=== PATIENT | male | born 1975 | race Caucasian/White ===

== ENCOUNTER 2017-10-04 07:42 | Emergency (ER) | payer BC, OTHER ==
[2017-10-04 07:50] VITALS: BP 117/79
--- NOTE | 2017-10-04 09:14 | EKG REPORT ---
SEVERITY:- OTHERWISE NORMAL ECG - SINUS RHYTHM LEFT AXIS DEVIATION : Confirmed by: Shaw David 04-Oct-2017 09:13:26
[2017-10-04] MEDS ORDERED: ALBUTEROL SULFATE HFA (90 MCG/PUFF) 8 GM MDI (1 MDI/ER DISP) IH ONE (09:18)
[2017-10-04] MEDS ORDERED: PREDNISONE 20 MG TABLET PO ONE (09:18)
--- NOTE | 2017-10-04 09:20 | ER Document Report ---
ED General - General Chief Complaint: Chest Wall Pain Stated Complaint: CHEST PAIN Time Seen by Provider: 10/04/17 08:09 TRAVEL OUTSIDE OF THE [place] IN LAST 30 DAYS: No - HPI Patient complains to provider of: Left chest wall pain Notes: Patient coming in for evaluation of chest wall pain. Patient states intermittent chest wall pain shortness of breath ongoing for the last 24 hours. Patient states 3 months ago he was diagnosed with a left chest wall mass was seen by cardiothoracic surgery at [facility] recommend follow-up CT scan in 3 months. Patient states he has follow-up CT scan on the . Patient denies any fevers chills nausea vomiting productive cough denies any recent travel patient otherwise resting comfortably upon my evaluation no signs of any obvious distress. Denies any trauma Past Medical History - Social History Smoking Status: Current Every Day Smoker Family History: Reviewed & Not Pertinent Patient has suicidal ideation: No Patient has homicidal ideation: No Renal/ Medical History: Denies: Hx Peritoneal Dialysis Skin Medical History: Comment Only Hx MRSA - MRSA FINGER JANUARY 24 Review of Systems - Review of Systems Constitutional: No symptoms reported EENT: No symptoms reported Cardiovascular: Chest pain Respiratory: No symptoms reported Gastrointestinal: No symptoms reported Genitourinary: No symptoms reported Male Genitourinary: No symptoms reported Musculoskeletal: No symptoms reported Skin: No symptoms reported Hematologic/Lymphatic: No symptoms reported Neurological/Psychological: No symptoms reported -: Yes All other systems reviewed and negative Physical Exam - Vital signs Vitals: Temp Pulse Resp BP Pulse Ox 97.8 F 75 15 117/79 95 10/04/17 07:49 10/04/17 07:49 10/04/17 07:49 10/04/17 07:49 10/04/17 07:49 Interpretation: Normal - General General appearance: Appears well, Alert - HEENT Head: Normocephalic, Atraumatic Eyes: Normal Pupils: PERRL - Respiratory Respiratory status: No respiratory distress Chest status: Nontender Breath sounds: Normal Chest palpation: Normal - Cardiovascular Rhythm: Regular Heart sounds: Normal auscultation Murmur: No - Abdominal Inspection: Normal Distension: No distension Bowel sounds: Normal Tenderness: Nontender Organomegaly: No organomegaly - Back Back: Normal, Nontender - Extremities General upper extremity: Normal inspection, Nontender, Normal color, Normal ROM , Normal temperature General lower extremity: Normal inspection, Nontender, Normal color, Normal ROM , Normal temperature, Normal weight bearing. No: Cr's sign - Neurological Neuro grossly intact: Yes Cognition: Normal Orientation: AAOx4 Rama Coma Scale Eye Opening: Spontaneous [place] Coma Scale Verbal: Oriented [place] Coma Scale Motor: Obeys Commands Rama Coma Scale Total: 15 Speech: Normal Motor strength normal: LUE, RUE, LLE, RLE Sensory: Normal - Psychological Associated symptoms: Normal affect, Normal mood - Skin Skin Temperature: Warm Skin Moisture: Dry Skin Color: Normal Course - Re-evaluation Re-evalutation: 10/04/17 14:38 Long discussion with patient at bedside today his vital signs and physical examination are otherwise normal. Patient states he feels similar when he was recently first diagnosed with the lung mass states at that time he placed him on bronchodilators and prednisone. Patient states he does have a follow-up CT scan on otherwise is more or less just aggravated by the intermittent chest wall pain intermittent shortness of breath. Patient had an EKG performed showing no signs of any cardiac issues. Long discussion with patient that unless clinically patient is very well and does have appropriate follow-up as outpatient. The patient was normal vital signs and I think a workup here in the ER was really healed much however I explained to patient that the mass in his chest if not benign could increase his risk of issues such as blood clots I do not think the patient's has any cardiac ischemia cardiac damage pulmonary infection or any trauma that would require any further imaging at this time. Patient states understanding and agrees that he would just follow-up with his outpatient CT scan 25th agrees to treatment plan at this time for bronchodilators and prednisone. Patient is understanding to return to ER symptoms worsen. - Vital Signs Vital signs: Temp Pulse Resp BP Pulse Ox 97.8 F 75 15 117/79 95 10/04/17 07:49 10/04/17 07:49 10/04/17 07:49 10/04/17 07:49 10/04/17 07:49 Discharge - Discharge Clinical Impression: Chest wall pain Dyspnea Qualifiers: Dyspnea type: unspecified Qualified Code(s): R06.00 - Dyspnea, unspecified Condition: Good Disposition: HOME, SELF-CARE Instructions: Chest Wall Pain ([facility]) Additional Instructions: Your EKG today does not show any signs of believe your underlying chest wall pain and dyspnea is more likely due to your known chest wall mass. I do not believe that you have any other critical etiology ongoing at this time except her vital signs are normal your afebrile there is no signs of hypoxia and your physical examination is otherwise normal. Please continue with your follow-up for a repeat CT scan. Return to ER if any symptoms change or worsen. Continue with Tylenol Motrin for pain control. Prescriptions: Prednisone [Deltasone] 60 mg PO DAILY #24 tablet Forms: Return to Work Referrals: ULISES DELATORRE MD [Primary Care Provider] - Follow up as needed
== END 2017-10-04 09:44 | disposition home or self-care (01) ==
LOC: ER 07:42
DX: R07.89 Other chest pain (principal); R06.00 Dyspnea, unspecified; F17.200 Nicotine dependence, unspecified, uncomplicated; Z86.14 Personal history of Methicillin resistant Staphylococcus aureus infection
CPT/HCPCS: 93005; 99284; 93010; J7512; J3490

== ENCOUNTER 2017-11-20 09:09 | Emergency (ER) | payer BC ==
[2017-11-20] MEDS ORDERED: SULFAMETHOXAZOLE/TRIMETHOPRIM 800-160 MG TABLET PO ONE (10:29)
--- NOTE | 2017-11-20 10:43 | ER Document Report ---
ED General - General Chief Complaint: Wound Infection Stated Complaint: WOUND ISSUE Time Seen by Provider: 11/20/17 09:57 TRAVEL OUTSIDE OF THE [place] IN LAST 30 DAYS: No - HPI Patient complains to provider of: Surgical wound infection Notes: Patient coming in for surgical infection. Patient states had a lobectomy at [facility] in the middle of of October states for 1 week the lower part of the incision approximately lateral portion of the chest wall ribs 6 7 had opened up he has been placing Neosporin and a dressing on it also has been violating the wound edges but he had it was finger and obtaining pus out of the open wound. Patient denies any fever chills nausea vomiting diarrhea denies any shortness of breath. Patient does have a follow-up with his cardiothoracic surgeon at [facility] all fortunately this is not until December 05. Patient resting comfortably upon my evaluation - Related Data Allergies/Adverse Reactions: No Known Allergies Allergy (Unverified 11/20/17 09:17) Past Medical History - Social History Smoking Status: Former Smoker Family History: Reviewed & Not Pertinent Patient has suicidal ideation: No Patient has homicidal ideation: No Renal/ Medical History: Denies: Hx Peritoneal Dialysis Skin Medical History: Comment Only Hx MRSA - MRSA FINGER JANUARY 24 Review of Systems - Review of Systems Constitutional: No symptoms reported EENT: No symptoms reported Cardiovascular: No symptoms reported Respiratory: No symptoms reported Gastrointestinal: No symptoms reported Genitourinary: No symptoms reported Male Genitourinary: No symptoms reported Musculoskeletal: No symptoms reported Skin: Other - Wound infection Hematologic/Lymphatic: No symptoms reported Neurological/Psychological: No symptoms reported -: Yes All other systems reviewed and negative Physical Exam - Vital signs Vitals: Temp Pulse Resp BP Pulse Ox 98.0 F 91 18 150/90 H 97 11/20/17 09:16 11/20/17 09:16 11/20/17 09:16 11/20/17 09:16 11/20/17 09:16 Interpretation: Normal - General General appearance: Appears well, Alert - HEENT Head: Normocephalic, Atraumatic Eyes: Normal Pupils: PERRL - Respiratory Respiratory status: No respiratory distress Chest status: Nontender Breath sounds: Normal Chest palpation: Normal Notes: Examination of the chest wall does reveals postsurgical scars in the left upper axilla and a small 1 lateral chest wall rib 6 7 there is no erythema on the wound margins however there is a small area of dehiscence on the medial portion of the wound is open less than 0.5 cm. There is some purulent material that is easily expressed from the wound. Bedside ultrasound does not show any deep fluid collections or abscess formation. There is no explosion of pus when the patient coughs there is no signs of a sucking wound whenever the patient takes a deep breath in. - Cardiovascular Rhythm: Regular Heart sounds: Normal auscultation Murmur: No - Abdominal Inspection: Normal Distension: No distension Bowel sounds: Normal Tenderness: Nontender Organomegaly: No organomegaly - Back Back: Normal, Nontender - Extremities General upper extremity: Normal inspection, Nontender, Normal color, Normal ROM , Normal temperature General lower extremity: Normal inspection, Nontender, Normal color, Normal ROM , Normal temperature, Normal weight bearing. No: Cr's sign - Neurological Neuro grossly intact: Yes Cognition: Normal Orientation: AAOx4 Rama Coma Scale Eye Opening: Spontaneous [place] Coma Scale Verbal: Oriented Rama Coma Scale Motor: Obeys Commands Rama Coma Scale Total: 15 Speech: Normal Motor strength normal: LUE, RUE, LLE, RLE Sensory: Normal - Psychological Associated symptoms: Normal affect, Normal mood - Skin Skin Temperature: Warm Skin Moisture: Dry Skin Color: Normal Course - Re-evaluation Re-evalutation: 11/20/17 16:08 Patient with a wound infection the wound was cultured patient on Bactrim. Did discuss with cardiothoracic surgeon at [facility] that patient can call their office to schedule a earlier appointment. Patient states understanding of these instructions discharged home - Vital Signs Vital signs: Temp Pulse Resp BP Pulse Ox 98.1 F 74 18 146/88 H 97 11/20/17 10:50 11/20/17 10:50 11/20/17 10:50 11/20/17 10:50 11/20/17 10:50 Discharge - Discharge Clinical Impression: Infected surgical wound Qualifiers: Encounter type: initial encounter Qualified Code(s): T81.4XXA - Infection following a procedure, initial encounter Condition: Good Disposition: HOME, SELF-CARE Instructions: Antibiotic Ointment Protection ([facility]), Wound Infection ([facility]) Additional Instructions: I did discuss your wound infection with your cardiothoracic surgery team. These call the office later today and they will schedule you an earlier appointment. Take antibiotics as prescribed return to ER for any other concerns Prescriptions: Sulfamethoxazole/Trimethoprim [Bactrim 400-80 mg Tablet] 1 each PO BID #20 tablet Forms: Return to Work Referrals: ULISES DELATORRE MD [Primary Care Provider] - Follow up in 3-5 days
[2017-11-20 11:04] VITALS: BP 146/88
== END 2017-11-20 11:00 | disposition home or self-care (01) ==
LOC: ER 09:09
DX: T81.4XXA Infection following a procedure, initial encounter (principal); T81.31XA Disruption of external operation (surgical) wound, not elsewhere classified, initial encounter; Y83.6 Removal of other organ (partial) (total) as the cause of abnormal reaction of the patient, or of later complication, without mention of misadventure at the time of the procedure; Z90.2 Acquired absence of lung [part of]; Z87.891 Personal history of nicotine dependence; Z86.14 Personal history of Methicillin resistant Staphylococcus aureus infection
CPT/HCPCS: 87070; 87077; 87186; 87205; 99282

== ENCOUNTER 2020-01-02 13:33 | Emergency (ER) | payer BC ==
--- NOTE | 2020-01-02 13:49 | ER Document Report ---
ED Medical Screen (RME) - General Chief Complaint: Leg Pain Stated Complaint: LEFT LEG PAIN Time Seen by Provider: 01/02/20 13:41 Primary Care Provider: ULISES DELATORRE MD [Primary Care Provider] - Follow up as needed Mode of Arrival: Ambulatory Information source: Patient Notes: 44-year-old male presented to ED for complaint of numbness tingling ymxr-pjn-frtsryw in his left leg. He states is been since last Sunday. He states he woke up this morning and there was hwhx-jcn-gqlnbtm from the knee down. He states he did help to move something last Sunday but he has no pain in his back no pain in his buttocks and no other injuries. He states he just feels like he is walking on a leg at times. Patient does have good pedal pulses equal bilaterally. He has no tenderness to the lumbar spine he has no tenderness to the SI joint. I have greeted and performed a rapid initial assessment of this patient. A comprehensive ED assessment and evaluation of the patient, analysis of test results and completion of medical decision making process will be conducted by an additional ED providers. TRAVEL OUTSIDE OF THE [place] IN LAST 30 DAYS: No - Related Data Allergies/Adverse Reactions: No Known Allergies Allergy (Unverified 11/20/17 09:17) Past Medical History Renal/ Medical History: Denies: Hx Peritoneal Dialysis Skin Medical History: Comment Only Hx MRSA - MRSA FINGER JANUARY 24 Physical Exam - Vital signs Vitals: Temp Pulse Resp BP Pulse Ox 97.8 F 50 L 18 114/73 99 01/02/20 13:39 01/02/20 13:39 01/02/20 13:39 01/02/20 13:39 01/02/20 13:39 Course - Vital Signs Vital signs: Temp Pulse Resp BP Pulse Ox 97.8 F 50 L 18 114/73 99 01/02/20 13:39 01/02/20 13:39 01/02/20 13:39 01/02/20 13:39 01/02/20 13:39 Doctor's Discharge - Discharge Referrals: ULISES DELATORRE MD [Primary Care Provider] - Follow up as needed
[2020-01-02 14:17] LABS: ABSOLUTE BASOPHILS # (AUTO) 0.1 10^3/uL (0.0-0.2); ABSOLUTE EOSINOPHILS # (AUTO) 0.5 10^3/uL (0.0-0.6); ABSOLUTE LYMPHOCYTES (AUTO) 2.4 10^3/uL (0.5-4.7); ABSOLUTE MONOCYTES (AUTO) 0.6 10^3/uL (0.1-1.4); ABSOLUTE NEUT (AUTO) 4.5 10^3/uL (1.7-8.2); BASOPHILS % (AUTO) 0.6 % (0-2); EOSINOPHILS % (AUTO) 6.6 % (0-6); HEMATOCRIT 44.4 % (37.9-51.0); LYMPHOCYTES % (AUTO) 29.8 % (13-45); MEAN CORPUSCULAR HEMOGLOBIN 29.3 pg (27.0-33.4); MEAN CORPUSCULAR HGB CONC 33.9 g/dL (32.0-36.0); MEAN CORPUSCULAR VOLUME 87 fl (80-97); MONOCYTES % (AUTO) 7.5 % (3-13); PLATELET COUNT 292 10^3/uL (150-450); RED BLOOD COUNT 5.13 10^6/uL (4.35-5.55); RED CELL DISTRIBUTION WIDTH 14.4 % (11.5-14.0); SEGMENTED NEUTROPHILS % (AUTO) 55.5 % (42-78); TOTAL CELLS COUNTED % (AUTO) 100 %; WHITE BLOOD COUNT 8.2 10^3/uL (4.0-10.5)
--- NOTE | 2020-01-02 14:19 | RADIOLOGY REPORT (SQ) ---
EXAM DESCRIPTION: L SPINE WHOLE IMAGES COMPLETED DATE/TIME: 01/02/2020 2:13 pm REASON FOR STUDY: pins and needles to left leg COMPARISON: None. NUMBER OF VIEWS: Five views including obliques. TECHNIQUE: AP, lateral, oblique, and sacral radiographic images acquired of the lumbar spine. LIMITATIONS: None. FINDINGS: MINERALIZATION: Normal. SEGMENTATION: Normal. No transitional anatomy. ALIGNMENT: Normal. VERTEBRAE: Maintained height. No fracture or worrisome bone lesion. DISCS: Preserved height. No significant osteophytes or end plate irregularity. POSTERIOR ELEMENTS: Pedicles and facets are intact. No pars defect or posterior arch defects. HARDWARE: None in the spine. PARASPINAL SOFT TISSUES: Normal. PELVIS: Intact as visualized. No fractures or worrisome bone lesions. SI joints intact. OTHER: No other significant finding. IMPRESSION: NORMAL 5 VIEW LUMBAR SPINE. TECHNICAL DOCUMENTATION: JOB ID: [id number] 2010 [employer]- All Rights Reserved Reading location - IP/workstation name: [email or web address]
[2020-01-02 14:30] LABS: PROTHROMBIN TIME 13.2 SEC (11.4-15.4)
[2020-01-02 14:31] LABS: PARTIAL THROMBOPLASTIN TIME 27.1 SEC (23.5-35.8)
[2020-01-02 14:38] LABS: ALBUMIN 4.5 g/dL (3.5-5.0); ALKALINE PHOSPHATASE 78 U/L (38-126); ANION GAP 8 (5-19); ASPARTATE AMINO TRANSFERASE 20 U/L (17-59); BILIRUBIN,TOTAL 0.5 mg/dL (0.2-1.3); BLOOD UREA NITROGEN 14 mg/dL (7-20); CARBON DIOXIDE 22 mmol/L (22-30); CHLORIDE 109 mmol/L (98-107); GLUCOSE 105 mg/dL (75-110); TOTAL PROTEIN 6.6 g/dL (6.3-8.2)
--- NOTE | 2020-01-02 15:46 | RADIOLOGY REPORT (SQ) ---
EXAM DESCRIPTION: VENOUS UNILATERAL LOWER IMAGES COMPLETED DATE/TIME: 01/02/2020 3:38 pm REASON FOR STUDY: left leg pins and needles off and on since COMPARISON: None. TECHNIQUE: Dynamic and static jiang scale and color images acquired of the left leg venous system. Se lected spectral images acquired with additional compression and augmentation maneuvers. The contralat eral common femoral vein and saphenofemoral junction were also imaged. Images stored on PACS. LIMITATIONS: None. FINDINGS: COMMON FEMORAL: Normal phasicity, compression and augmentation. No visualized echogenic ma terial on jiang scale. No defects on color images. FEMORAL: Normal compression and augmentation. No visualized echogenic material on jiang scale. No defe cts on color images. POPLITEAL: Normal compression, augmentation. No visualized echogenic material on jiang scale. No defec ts on color images. CALF VESSELS: Normal compression, augmentation. No visualized echogenic material on jiang scale. No de fects on color images. GSV and SSV: Normal compression, augmentation. No visualized echogenic material on jiang scale. No def ects on color images. ANY DEEP VENOUS INSUFFICIENCY: Not evaluated. ANY EVIDENCE OF POPLITEAL CYST: No. OTHER: No other significant finding. CONTRALATERAL COMMON FEMORAL VEIN AND SAPHENOFEMORAL JUNCTION: Normal phasicity, compression and augmentation. No visualized echogenic material on jiang scale. No de fects on color images. IMPRESSION: NO EVIDENCE DVT OR SVT IN THE LEFT LEG. TECHNICAL DOCUMENTATION: JOB ID: [id number] 2010 [employer]- All Rights Reserved Reading location - IP/workstation name: [email or web address]
--- NOTE | 2020-01-02 17:38 | ER Document Report ---
ED General - General Chief Complaint: Leg Pain Stated Complaint: LEFT LEG PAIN Time Seen by Provider: 01/02/20 13:41 Primary Care Provider: ULISES DELATORRE MD [COMMUNITY BASED STAFF] - Follow up as needed Mode of Arrival: Ambulatory Notes: 44-year-old male presents to the emergency department with a complaint of tingling and pbtd-yks-ntjnuvu sensation in his left leg intermittently since Sunday. He states whenever he sits down for extended period he feels like his leg is falling asleep. He denies pain or weakness. He states when he starts to move around the symptoms resolve. He is a smoker, denies any prior history of similar episodes. Denies diabetes, hypertension or known history of vascular disease. TRAVEL OUTSIDE OF THE [place] IN LAST 30 DAYS: No - Related Data Allergies/Adverse Reactions: No Known Allergies Allergy (Unverified 11/20/17 09:17) Past Medical History - General Information source: Patient - Social History Smoking Status: Never Smoker Family History: Reviewed & Not Pertinent Renal/ Medical History: Denies: Hx Peritoneal Dialysis Skin Medical History: Comment Only Hx MRSA - MRSA FINGER JANUARY 24 Review of Systems - Review of Systems Notes: Constitutional: Negative for fever. HENT: Negative for sore throat. Eyes: Negative for visual changes. Cardiovascular: Negative for chest pain. Respiratory: Negative for shortness of breath. Gastrointestinal: Negative for abdominal pain, vomiting or diarrhea. Genitourinary: Negative for dysuria. Musculoskeletal: See HPI Skin: Negative for rash. Neurological: Negative for headaches, weakness or numbness. 10 point ROS negative except as marked above and in HPI. Physical Exam - Vital signs Vitals: Temp Pulse Resp BP Pulse Ox 97.8 F 50 L 18 114/73 99 01/02/20 13:39 01/02/20 13:39 01/02/20 13:39 01/02/20 13:39 01/02/20 13:39 - Notes Notes: PHYSICAL EXAMINATION: Physical Exam: General: Well-nourished well-developed in no acute distress HEENT: NC/AT, pupils equal round and reactive to light, MM moist,nares clear, oropharynx clear, airway patent Neck: supple, no adenopathy, no masses. Good range of motion Lungs: clear, no wheezing, no rales no rhonchi CVS: Regular rate and rhythm no murmur gallop or rub Abdomen: Soft, active, nontender, no masses, no hepatosplenomegaly Ext: Left lower extremity with good dorsalis pedis and posterior tibialis pulses, the foot is warm, pink with no edema and good strength. Neuro: Alert and responsive, moving all 4 extremities on command, cranial nerves intact, no focal findings Skin: Intact no open lesions, no rash PSYCH: Normal mood, normal affect. Course - Vital Signs Vital signs: Temp Pulse Resp BP Pulse Ox 97.8 F 50 L 18 114/73 99 01/02/20 13:39 01/02/20 13:39 01/02/20 13:39 01/02/20 13:39 01/02/20 13:39 - Laboratory Result Diagrams: 01/02/20 13:10 01/02/20 13:10 Laboratory results interpreted by me: 01/02/20 01/02/20 13:10 13:10 RDW 14.4 H Eos % (Auto) 6.6 H Chloride 109 H - Diagnostic Test Radiology reviewed: Image reviewed, Reports reviewed - X-ray lumbar spine: No acute findings. Ultrasound left lower extremity: No DVT, no SVT. Discharge - Discharge Clinical Impression: Paresthesia of left leg Condition: Good Disposition: HOME, SELF-CARE Instructions: Numbness or Paresthesia ([facility]) Additional Instructions: Seen in the emergency department today with tingling and episodic numbness in the left leg. Apparently symptoms have been progressive and the evaluation in the emergency department did not identify a specific cause. It is suggested that you follow-up with a neurologist for a further evaluation and investigation. You have been given the telephone number to schedule an a ppointment with the neurologist for further evaluation. If your symptoms are worsening or if you have other concerns you may return to the emergency department for further evaluation and treatment HOME CARE INSTRUCTIONS & INFORMATION: Thank you for choosing us for your medical needs. We hope you're satisfied with the care you received. After you leave, you must properly care for your problem and, at the same time, observe its progress. Any condition can change. Some illnesses can change rapidly over hours or days. If your condition worsens, return to the Emergency Department or see your physician promptly. ABOUT YOUR X-RAYS AND EKG'S: If you had an EKG or X-rays taken, they have been read by the Emergency Physician. The X-rays and EKG's will also be read by a Radiologist or Outside Sales within 24 hours. If discrepancies are noted, you will be notified by telephone. Please be certain the ED has a correct telephone number & address where you can be reached. Also, realize that some fractures or abnormalities do not show up on initial X-rays. If your symptoms continue, see your physician. ABOUT YOUR LABORATORY TEST: If you had laboratory tests, the results have been reviewed by the Emergency Physician. Some test results (for example cultures) may not be available for several days. You will be contacted if any test result shows you need additional treatment. Please be certain the ED has a correct telephone number and address where you can be reached. ABOUT YOUR MEDICATIONS: You will receive instructions on how to take your medicine on the prescription label you receive. Additional information may be provided by the Pharmacy. If you have questions afterwards, call the ED for clarification or further instructions. Some prescribed medications may cause drowsiness. Do not perform tasks such as driving a car or operating machinery without consulting your Pharmacist. If you feel you need a refill of pain medication, your condition will need re-evaluation. Please do not call for a refill of any medication. ABOUT YOUR SIGNATURE: Signature of this document acknowledges to followin. Understanding that you received emergency treatment and that you may be released before al medical problems are known or treated. Please be certain the ED has a correct phone number & address where you can be reached. 2. Acknowledgement that you will arrange for follow-up care as recommended. 3. Authorization for the Emergency Physician to provide information to your follow-up Physician in order to maximize your care. AT ANY TIME, IF YOUR SYMPTOMS CHANGE SIGNIFICANTLY OR WORSEN OR YOU DEVELOP NEW SYMPTOMS, RETURN TO THE EMERGENCY DEPARTMENT IMMEDIATELY FOR RE-EVALUATION. OUR GOAL IS TO PROVIDE EXCELLENT MEDICAL CARE! WE HOPE THAT WE HAVE MET YOUR EXPECTATIONS DURING YOUR EMERGENCY DEPARTMENT VISIT AND THAT YOU FEEL YOU HAVE RECEIVED EXCELLENT CARE! Referrals: TAO ALFARO MD [EMERITUS] - Follow up as needed
[2020-01-02 18:25] VITALS: BP 114/88
== END 2020-01-02 18:08 | disposition home or self-care (01) ==
LOC: ER 13:33
DX: R20.2 Paresthesia of skin (principal); M79.605 Pain in left leg
CPT/HCPCS: 36415; 72110; 80053; 85025; 85610; 85730; 93971; 99284